=== PATIENT | female | born 1985 | race Caucasian/White ===

== ENCOUNTER 2017-02-09 17:25 | Emergency (ER) | payer OTHER ==
[~2017-02-09] VITALS: Ht 165.1 cm; Wt 114.5 kg
[~2017-02-09 17:25] MED LIST: BUPR1SUB23 SL; MTR800 PO; RANI75TA7 PO; SERT-234 PO
[2017-02-09 17:35] VITALS: TEMP 37; Ht 165.1 cm; Wt 114.5 kg
[2017-02-09] MEDS ORDERED: SULFAMETHOXAZOLE/TRIMETHOPRIM DS 800/160MG TAB PO STA (19:15)
[2017-02-09] MEDS ORDERED: LIDO/EPINEPHRINE/SOD BICARB 20 ML VIAL INFIL ONE (19:15)
[2017-02-09] MEDS ORDERED: MoRPHine SULFATE 4 MG/ML 1 ML CARP\\VIAL IV STA (19:15)
[2017-02-09] MEDS ORDERED: CLINDAMYCIN IV 900 MG in DEXTROSE 5% ADD-VANTAGE 100ML 100 ML IV ONE (19:15)
[2017-02-09 19:52] LABS: BASO % 0.2 %; BASO ABS # 0.02 K/uL (0-0.2); COMPLETE YES; HEMATOCRIT 39.5 % (37-47); IG% 0.2 %; LYMPH % 21.5 %; LYMPH ABS # 1.91 K/uL (1.2-3.4); MEAN CELL VOLUME 84.2 fL (80-100); MEAN CORPUSCULAR HGB CONC 34.4 g/dl (32-36); MEAN PLATELET VOLUME 8.5 fL (7.4-10.4); MONO % 10.1 %; PLATELET COUNT 221 K/uL (130-400); RED BLOOD COUNT 4.69 M/uL (4.2-5.4)
[2017-02-09 20:08] LABS: CALCIUM 8.8 mg/dl (8.5-10.1); CREATININE 0.63 mg/dl (0.60-1.20); POTASSIUM 3.9 mmol/L (3.5-5.1)
[2017-02-09] MEDS ORDERED: RANI1TAB75 PO (20:23)
[2017-02-09] MEDS ORDERED: TRAZ100T29 PO (20:23)
[2017-02-09] MEDS ORDERED: PHEN37.5 PO (20:26)
[2017-02-09] MEDS ORDERED: BUPR8MIS PO (20:27)
[2017-02-09] MEDS ORDERED: CLIN300C2 PO (21:04)
[2017-02-09] MEDS ORDERED: SULF800T23 PO (21:04)
--- NOTE | 2017-02-09 21:05 | EMERGENCY ROOM VISIT NOTE ---
History Report prepared by Jw: Lewis Mcnulty Under the Supervision of: Dr. Kirk Chung D.O. First contact with patient: 19:12 Chief Complaint: WOUND INFECTION Stated Complaint: LARGE BITE ON LF ARM IS INFECTED Nursing Triage Summary: Pt states was working in a flower garden for 4- days. Pt states, "we saw an enormous amount of baby spiders. Now I have this area on my left arm. I tried to pop it yesterday and this dark purple blood came out." Area red, swollen. Pt states, redness is increasing each day. History of Present Illness The patient is a 31 year old female who presents to the Emergency Room with complaints of a worsening abscess on the left forearm beginning four days prior to arrival. She currently rates her discomfort as an 8/10 in severity. The patient associates worsening redness, warmth, and pain at the site of the abscess with today's symptoms. She states she was working in a flower garden several days ago and a few days later, the abscess appeared. The patient recalls seeing a lot of spiders in the garden. She states she popped the abscess with a sewing needle last night and purple-tank blood and a large amount of pus was expressed. The patient denies a history of MRSA. 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 A total of 10 systems reviewed and were otherwise negative. Past Medical & Surgical Surgical Problems: (1) Hx of tonsillectomy Family History No pertinent family history Social History Smoking Status: Current Every Day Smoker Alcohol Use: none Marital Status: Housing Status: lives with family Occupation Status: employed Current/Historical Medications Scheduled Buprenorphine Hcl-Naloxone Hcl (Suboxone 8-2 Mg), 2 TAB PO DAILY Ibuprofen (Ibuprofen), 800 MG PO TID Phentermine Hcl (Phentermine Hcl), 1 TAB PO DAILY Ranitidine HCl (Ranitidine 75), 75 MG PO DAILY Sertraline (Zoloft), 200 MG PO DAILY Trazodone Hcl (Trazodone), 100 MG PO HS Allergies Coded Allergies: Penicillins (Unverified Allergy, Mild, 02/09/17) Aspirin (Unverified Allergy, Unknown, "bp went up", 02/09/17) Blueberry (Unverified Allergy, Unknown, HIVES, 02/09/17) Citric Acid (Unverified Allergy, Unknown, "bp went up", 02/09/17) Sodium Bicarbonate (Unverified Allergy, Unknown, "bp went up", 02/09/17) Physical Exam Vital Signs Date Time Temp Pulse Resp B/P Pulse Ox O2 Delivery O2 Flow Rate FiO2 02/09/17 20:05 89 16 108/76 99 Room Air 02/09/17 17:35 37.0 97 18 152/80 100 Room Air Physical Exam CONSTITUTIONAL/VITAL SIGNS: Reviewed / noted above. GENERAL: Non-toxic in appearance. INTEGUMENTARY: Left arm reveals a quarter size abscess on the left forearm dorsal surface with surrounding erythema. Erythema measures 16x12 cm. Warm, dry , and [place]. HEAD: Normocephalic. EYES: without scleral icterus or trauma. ENT/OROPHARYNX: clear and moist. LYMPHADENOPATHY/NECK: Is supple without lymphadenopathy or meningismus. RESPIRATORY: Lungs clear and equal. CARDIOVASCULAR: Regular rate and rhythm. GI/ABDOMEN: Soft and nontender. No organomegaly or pulsatile mass. No rebound or guarding. Normal bowel sounds. EXTREMITIES: Warm and well perfused. BACK: No CVA tenderness. NEUROLOGICAL: Intact without focal deficits. PSYCHIATRIC: normal affect. MUSCULOSKELETAL: Normally developed with good muscle tone. Medical Decision & Procedures Laboratory Results 02/09/17 19:42 Red Blood Count 4.69, Mean Corpuscular Volume 84.2, Mean Corpuscular Hemoglobin 29.0, Mean Corpuscular Hemoglobin Concent 34.4, Mean Platelet Volume 8.5, Neutrophils (%) (Auto) 67.0, Lymphocytes (%) (Auto) 21.5, Monocytes (%) (Auto) 10.1, Eosinophils (%) (Auto) 1.0, Basophils (%) (Auto) 0.2, Neutrophils # (Auto ) 5.96, Lymphocytes # (Auto) 1.91, Monocytes # (Auto) 0.90, Eosinophils # (Auto ) 0.09, Basophils # (Auto) 0.02 02/09/17 19:42 Test 02/09/17 19:42 White Blood Count 8.90 K/uL (4.8-10.8) Red Blood Count 4.69 M/uL (4.2-5.4) Hemoglobin 13.6 g/dL (12.0-16.0) Hematocrit 39.5 % (37-47) Mean Corpuscular Volume 84.2 fL (80-100) Mean Corpuscular Hemoglobin 29.0 pg (25-34) Mean Corpuscular Hemoglobin Concent 34.4 g/dl (32-36) Platelet Count 221 K/uL (130-400) Mean Platelet Volume 8.5 fL (7.4-10.4) Neutrophils (%) (Auto) 67.0 % Lymphocytes (%) (Auto) 21.5 % Monocytes (%) (Auto) 10.1 % Eosinophils (%) (Auto) 1.0 % Basophils (%) (Auto) 0.2 % Neutrophils # (Auto) 5.96 K/uL (1.4-6.5) Lymphocytes # (Auto) 1.91 K/uL (1.2-3.4) Monocytes # (Auto) 0.90 K/uL (0.11-0.59) Eosinophils # (Auto) 0.09 K/uL (0-0.5) Basophils # (Auto) 0.02 K/uL (0-0.2) RDW Standard Deviation 39.1 fL (36.4-46.3) RDW Coefficient of Variation 12.9 % (11.5-14.5) Immature Granulocyte % (Auto) 0.2 % Immature Granulocyte # (Auto) 0.02 K/uL (0.00-0.02) Anion Gap 7.0 mmol/L (3-11) Est Creatinine Clear Calc Drug Dose 166.4 ml/min Estimated GFR () 140.5 Estimated GFR (Non- 121.2 BUN/Creatinine Ratio 19.0 (10-20) Calcium Level 8.8 mg/dl (8.5-10.1) Medications Administered Medications (Trade) Dose Ordered Sig/Noam Route Start Time Stop Time Status Last Admin Dose Admin Trimethoprim/ Sulfamethoxazole 1 tab 1 tab NOW STAT PO 02/09/17 19:15 02/09/17 19:19 DC 02/09/17 19:30 1 TAB Clindamycin Phosphate/Dextrose (Cleocin Iv/ Dextrose Add-[place] 100ML) 106 ml @ 100 mls/hr ONE ONCE IV 02/09/17 19:15 02/09/17 20:18 DC 02/09/17 20:03 100 MLS/HR Morphine Sulfate (MoRPHine SULFATE INJ) 4 mg NOW STAT IV 02/09/17 19:15 02/09/17 19:19 DC 02/09/17 19:30 4 MG Procedure Incision & Drainage Indication: Abscess. Location: Left forearm Verbal consent was obtained after the risks and benefits were explained, including but not limited to bleeding, scarring, infection, pain, and bone/joint /nerve damage. At this time, the risks of the procedure are less than the risks of NOT performing the procedure. A time out was taken and the correct patient and site identified. The skin was prepped with betadine and a sterile field set. The wound was anesthetized with 1cc of 1% lidocaine without epinephrine. The abscess cavity was entered with a number 11 blade and bloody purulent discharge was expressed. The wound was explored for foreign bodies and none found. Debridement was not performed. Packing placed and a sterile dressing applied. Detailed wound care instructions and signs and symptoms of worsening infection reviewed with the patient. No complications and the patient tolerated the procedure well. ED Course 1912: Previous medical records were reviewed. The patient was evaluated in room B3B. A complete history and physical examination was performed. 1914: Ordered Lidocaine/Epinephrine 20 ml INFIL, Morphine Sulfate 4 mg IV, Clindamycin Phosphate 900 mg/Dextrose 106 ml @ 100 mls/hr IV, Trimethoprim/ Sulfamethoxazole 1 tab PO. 2100: On reevaluation, the patient is doing well. I discussed the results and findings with the patient. She verbalized agreement of the treatment plan. The patient was discharged home. Medical Decision Differential diagnosis: Etiologies such as cellulitis, abscess, MRSA infection, DVT, necrotizing fasciitis, dermatitis, drug eruption, as well as others were entertained.. This is a 31-year-old female who presents to the ED with a chief complaint of a left forearm abscess. She states that she has had 3 or 4 days. Yesterday she stuck a needle in it and drained purulent drainage. The abscess is about the size of a quarter. There is a surrounding erythematous area 12 cm proximal to distal and 16 cm laterally. Lidocaine was used and the scalpel was placed into the center of the wound. A small amount of bloody purulent discharge was obtained. The patient was treated with IV clindamycin and by mouth Bactrim. She will be discharged on clindamycin and Bactrim. He was given IV morphine for pain. Impression Primary Impression: Abscess of forearm, left Scribe Attestation The scribe's documentation has been prepared under my direction and personally reviewed by me in its entirety. I confirm that the note above accurately reflects all work, treatment, procedures, and medical decision making performed by me. Departure Information Dispostion Home / Self-Care Prescriptions Sulfa/Trimethoprim (Bactrim Ds 800MG/160MG) Tab 1 TAB PO BID, #14 TAB Prov: Kirk Chung D.O. 02/09/17 Clindamycin Hcl (CLEOCIN) 300 Mg Cap 300 MG PO QID, #40 CAP Prov: Kirk Chung D.O. 02/09/17 Referrals Richard Chung M.D. (PCP) Patient Instructions My [facility] Additional Instructions Clindamycin and Bactrim as prescribed. Follow-up with your doctor for further care and evaluation in 1-2 days. Return to the emergency department for worsening or new symptoms or any concerns. You have been examined and treated today on an emergency basis only. This is not a substitute for, or an effort to provide, complete comprehensive medical care. It is impossible to recognize and treat all injuries or illnesses in a single emergency department visit. It is therefore important that you follow up closely with your doctor. Call as soon as possible for an appointment.
[2017-02-09 21:18] VITALS: BP 134/78; PULSE 78; O2SAT 97
== END 2017-02-09 21:15 | disposition home or self-care (01) ==
LOC: C.EDB 17:26
DX: N94.10 Unspecified dyspareunia (principal); N93.9 Abnormal uterine and vaginal bleeding, unspecified; N39.0 Urinary tract infection, site not specified; F17.200 Nicotine dependence, unspecified, uncomplicated; Z90.711 Acquired absence of uterus with remaining cervical stump; Z83.3 Family history of diabetes mellitus; Z82.49 Family history of ischemic heart disease and other diseases of the circulatory system; Z84.1 Family history of disorders of kidney and ureter; Z82.0 Family history of epilepsy and other diseases of the nervous system

== ENCOUNTER 2017-02-14 09:28 | Inpatient (IN) | payer OTHER ==
[~2017-02-14] VITALS: Ht 167.6 cm; Wt 114.0 kg
[~2017-02-14 09:28] MED LIST changes: -BUPR1SUB23 SL; +BUPR8MIS PO; +CLIN300C2 PO; +PHEN37.5 PO; +RANI1TAB75 PO; -RANI75TA7 PO; +SULF800T23 PO; +TRAZ100T29 PO
[2017-02-14 09:29] VITALS: Ht 167.6 cm; Wt 114.0 kg
[2017-02-14] MEDS ORDERED: CLINDAMYCIN IV 900 MG in DEXTROSE 5% ADD-VANTAGE 100ML 100 ML IV ONE ×2 (10:00→10:45)
[2017-02-14 10:44] LABS: BASO % 0.1 %; BASO ABS # 0.01 K/uL (0-0.2); COMPLETE YES; EOS % 0.7 %; HEMATOCRIT 40.7 % (37-47); IG% 0.4 %; LYMPH % 14.4 %; LYMPH ABS # 1.44 K/uL (1.2-3.4); MEAN CELL VOLUME 82.1 fL (80-100); MEAN CORPUSCULAR HEMOGLOBIN 27.8 pg (25-34); MEAN CORPUSCULAR HGB CONC 33.9 g/dl (32-36); MEAN PLATELET VOLUME 8.6 fL (7.4-10.4); MONO % 8.6 %; NEUT % 75.8 %; PLATELET COUNT 322 K/uL (130-400); RED BLOOD COUNT 4.96 M/uL (4.2-5.4); WHITE BLOOD COUNT 9.98 K/uL (4.8-10.8)
[2017-02-14 11:10] LABS: BLOOD UREA NITROGEN 16 mg/dl (7-18); BUN/CREATININE RATIO 19.3 (10-20); CALCIUM 9.3 mg/dl (8.5-10.1); CARBON DIOXIDE 26 mmol/L (21-32); CHLORIDE 103 mmol/L (98-107); CREATININE 0.82 mg/dl (0.60-1.20); GLUCOSE 96 mg/dl (70-99); SODIUM 136 mmol/L (136-145)
--- NOTE | 2017-02-14 11:31 | DIAGNOSTIC IMAGING REPORT ---
LEFT UPPER EXTREMITY VENOUS DOPPLER HISTORY: Left arm swelling COMPARISON STUDY: None. FINDINGS: The left internal jugular vein is patent. There is normal flow within the left subclavian vein. There is normal flow and compressibility within the left axillary, basilic, brachial, radial, ulnar, and visualized cephalic veins. IMPRESSION: No DVT within the left upper extremity. Electronically signed by: Maykel Panchal M.D. 02/14/2017 11:28 AM Dictated Date/Time: 02/14/2017 11:28 AM
--- NOTE | 2017-02-14 11:46 | DIAGNOSTIC IMAGING REPORT ---
LEFT UPPER EXTREMITY ULTRASOUND CLINICAL HISTORY: Laceration. Possible infection. COMPARISON STUDY: No previous studies for comparison. FINDINGS: There is a 2.9 x 0.9 x 1.6 cm fluid collection within the deep subcutaneous tissues overlying the musculature of the left forearm. IMPRESSION: 2.9 x 0.9 x 1.6 cm fluid collection within the deep subcutaneous tissues of the left forearm. Given the clinical history, this favors an abscess. Electronically signed by: Amol Lane M.D. 02/14/2017 11:44 AM Dictated Date/Time: 02/14/2017 11:41 AM
--- NOTE | 2017-02-14 11:48 | DIAGNOSTIC IMAGING REPORT ---
LEFT ELBOW 3 VIEWS CLINICAL HISTORY: Spider bite injury. Swelling. FINDINGS: 3 views of the left elbow are obtained. No prior studies are available for comparison at the time of dictation. The skeletal structures are well mineralized. No fracture is seen. The joint spaces are preserved. No joint effusion is identified. Significant soft tissue edema is present around the elbow. No subcutaneous gas or radiodense foreign body is identified. IMPRESSION: 1. No acute bony abnormality is seen in the left elbow. 2. Marked soft tissue edema is present around the elbow joint. Electronically signed by: Chemo Brar M.D. 02/14/2017 11:46 AM Dictated Date/Time: 02/14/2017 11:45 AM
[2017-02-14] MEDS ORDERED: DiphenhydrAMINE HCL 50 MG/ML VIAL IV PRN (15:00)
[2017-02-14] MEDS ORDERED: ONDANSETRON INJ 2 MG/ML 2 ML VIAL IV PRN (15:00)
--- NOTE | 2017-02-14 15:03 | EMERGENCY ROOM VISIT NOTE ---
History Report prepared by Jw: Chelita Tena Under the Supervision of: Dr. Kirk Chung D.O. First contact with patient: 09:40 Chief Complaint: WOUND INFECTION Stated Complaint: LACERATION, POSSIBLE INFECTION Nursing Triage Summary: "I was here last week for a spider bite to my left arm and they lanced it. I was told to come back if it got worse and I think it has." per pt. Pt states she had a fever last evening that responded to motrin and that there is redness, swelling and some drainage from the bite area. History of Present Illness The patient is a 31 year old female who presents to the Emergency Room with complaints of worsening wound infection starting 3 days ago. She was seen in the ED previously and placed on Keflex and Bactrim. She has been taking her medications as prescribed. She describes the wound as purple and painful. She took the bandage off 3 days ago and drained 3 paper towels worth of green pus. Source of History: patient Onset: 3 days ago Position: arm (left) Quality: other (infection) Timing: worsening Note: Pt report arm pain, pus drainage. Review of Systems See HPI for pertinent positives & negatives. A total of 10 systems reviewed and were otherwise negative. Past Medical & Surgical Medical Problems: (1) Abscess of left forearm Surgical Problems: (1) Hx of tonsillectomy Family History Gallbladder disease Hypertension Social History Smoking Status: Current Every Day Smoker Alcohol Use: none Marital Status: Housing Status: lives with family Occupation Status: employed Current/Historical Medications Scheduled Buprenorphine Hcl-Naloxone Hcl (Suboxone 8-2 Mg), 2 TAB PO DAILY Clindamycin Hcl (Cleocin), 300 MG PO QID Ibuprofen (Ibuprofen), 800 MG PO TID Phentermine Hcl (Phentermine Hcl), 1 TAB PO DAILY Ranitidine HCl (Ranitidine 75), 75 MG PO DAILY Sertraline (Zoloft), 200 MG PO DAILY Sulfa/Trimethoprim (Bactrim Ds 800MG/160MG), 1 TAB PO BID Trazodone Hcl (Trazodone), 100 MG PO HS Allergies Coded Allergies: Penicillins (Unverified Allergy, Mild, 02/09/17) Aspirin (Unverified Allergy, Unknown, "bp went up", 02/09/17) Blueberry (Unverified Allergy, Unknown, HIVES, 02/09/17) Citric Acid (Unverified Allergy, Unknown, "bp went up", 02/09/17) Sodium Bicarbonate (Unverified Allergy, Unknown, "bp went up", 02/09/17) Physical Exam Vital Signs Date Time Temp Pulse Resp B/P Pulse Ox O2 Delivery O2 Flow Rate FiO2 02/14/17 13:36 99 17 140/89 96 Room Air 02/14/17 12:09 94 18 145/87 99 Room Air 02/14/17 09:29 36.7 99 16 138/82 100 Room Air Physical Exam CONSTITUTIONAL/VITAL SIGNS: Reviewed / noted above. GENERAL: Non-toxic in appearance. INTEGUMENTARY: Warm, dry, and [place]. HEAD: Normocephalic. EYES: without scleral icterus or trauma. ENT/OROPHARYNX: clear and moist. LYMPHADENOPATHY/NECK: Is supple without lymphadenopathy or meningismus. RESPIRATORY: Lungs clear and equal. CARDIOVASCULAR: Regular rate and rhythm. GI/ABDOMEN: Soft and nontender. No organomegaly or pulsatile mass. No rebound or guarding. Normal bowel sounds. EXTREMITIES: Warm and well perfused. Erythema and induration to the left proximal forearm and lateral elbow area. Improvement of cellulitis distally compared to previous visit. No fluctuance. BACK: No CVA tenderness. NEUROLOGICAL: Intact without focal deficits. PSYCHIATRIC: normal affect. MUSCULOSKELETAL: Normally developed with good muscle tone. Medical Decision & Procedures ER Provider Diagnostic Interpretation: X ray results and stated below per my interpretation and radiology interpretation. Radiology results as stated below per my review and radiologist interpretation: LEFT ELBOW 3 VIEWS CLINICAL HISTORY: Spider bite injury. Swelling. FINDINGS: 3 views of the left elbow are obtained. No prior studies are available for comparison at the time of dictation. The skeletal structures are well mineralized. No fracture is seen. The joint spaces are preserved. No joint effusion is identified. Significant soft tissue edema is present around the elbow. No subcutaneous gas or radiodense foreign body is identified. IMPRESSION: 1. No acute bony abnormality is seen in the left elbow. 2. Marked soft tissue edema is present around the elbow joint. Electronically signed by: Chemo Brar M.D. 02/14/2017 11:46 AM Dictated Date/Time: 02/14/2017 11:45 AM LEFT UPPER EXTREMITY ULTRASOUND CLINICAL HISTORY: Laceration. Possible infection. COMPARISON STUDY: No previous studies for comparison. FINDINGS: There is a 2.9 x 0.9 x 1.6 cm fluid collection within the deep subcutaneous tissues overlying the musculature of the left forearm. IMPRESSION: 2.9 x 0.9 x 1.6 cm fluid collection within the deep subcutaneous tissues of the left forearm. Given the clinical history, this favors an abscess. Electronically signed by: Amol Lane M.D. 02/14/2017 11:44 AM Dictated Date/Time: 02/14/2017 11:41 AM LEFT UPPER EXTREMITY VENOUS DOPPLER HISTORY: Left arm swelling COMPARISON STUDY: None. FINDINGS: The left internal jugular vein is patent. There is normal flow within the left subclavian vein. There is normal flow and compressibility within the left axillary, basilic, brachial, radial, ulnar, and visualized cephalic veins. IMPRESSION: No DVT within the left upper extremity. Electronically signed by: Maykel Panchal M.D. 02/14/2017 11:28 AM Dictated Date/Time: 02/14/2017 11:28 AM Laboratory Results 02/14/17 10:20 Red Blood Count 4.96, Mean Corpuscular Volume 82.1, Mean Corpuscular Hemoglobin 27.8, Mean Corpuscular Hemoglobin Concent 33.9, Mean Platelet Volume 8.6, Neutrophils (%) (Auto) 75.8, Lymphocytes (%) (Auto) 14.4, Monocytes (%) (Auto) 8.6, Eosinophils (%) (Auto) 0.7, Basophils (%) (Auto) 0.1, Neutrophils # (Auto) 7.56, Lymphocytes # (Auto) 1.44, Monocytes # (Auto) 0.86, Eosinophils # (Auto) 0.07, Basophils # (Auto) 0.01 02/14/17 10:20 Test 02/14/17 10:20 White Blood Count 9.98 K/uL (4.8-10.8) Red Blood Count 4.96 M/uL (4.2-5.4) Hemoglobin 13.8 g/dL (12.0-16.0) Hematocrit 40.7 % (37-47) Mean Corpuscular Volume 82.1 fL (80-100) Mean Corpuscular Hemoglobin 27.8 pg (25-34) Mean Corpuscular Hemoglobin Concent 33.9 g/dl (32-36) Platelet Count 322 K/uL (130-400) Mean Platelet Volume 8.6 fL (7.4-10.4) Neutrophils (%) (Auto) 75.8 % Lymphocytes (%) (Auto) 14.4 % Monocytes (%) (Auto) 8.6 % Eosinophils (%) (Auto) 0.7 % Basophils (%) (Auto) 0.1 % Neutrophils # (Auto) 7.56 K/uL (1.4-6.5) Lymphocytes # (Auto) 1.44 K/uL (1.2-3.4) Monocytes # (Auto) 0.86 K/uL (0.11-0.59) Eosinophils # (Auto) 0.07 K/uL (0-0.5) Basophils # (Auto) 0.01 K/uL (0-0.2) RDW Standard Deviation 38.3 fL (36.4-46.3) RDW Coefficient of Variation 12.7 % (11.5-14.5) Immature Granulocyte % (Auto) 0.4 % Immature Granulocyte # (Auto) 0.04 K/uL (0.00-0.02) Anion Gap 7.0 mmol/L (3-11) Est Creatinine Clear Calc Drug Dose 129.6 ml/min Estimated GFR () 112.1 Estimated GFR (Non- 96.7 BUN/Creatinine Ratio 19.3 (10-20) Calcium Level 9.3 mg/dl (8.5-10.1) Laboratory results as stated above per my review. Medications Administered Medications (Trade) Dose Ordered Sig/Noam Route Start Time Stop Time Status Last Admin Dose Admin Clindamycin Phosphate/Dextrose (Cleocin Iv/ Dextrose Add-[place] 100ML) 106 ml @ 100 mls/hr ONE ONCE IV 02/14/17 10:45 02/14/17 11:48 DC 02/14/17 10:45 100 MLS/HR ED Course 0940: Previous medical records were reviewed. The patient was evaluated in room A11. A complete history and physical examination was performed. 1000: Clindamycin Phosphate 900 mg/Dextrose 106 ml @ 100 mls/hr IV. 1218: I discussed the patient's case with [facility] [place]. They told me to contact orthopedics as they do not do the procedure. 1240: I discussed the patient's case with Chinmay Jordan PA-C [facility] [place]. He will evaluate the patient for further management. 1248: On reevaluation, the patient is resting comfort. I discussed the results and findings with her. She verbalized agreement of the treatment plan. The patient will be evaluated for further management and care. 0600: Cefazolin Sodium 3000 mg IV. Medical Decision Differential diagnosis: Etiologies such as cellulitis, abscess, MRSA infection, DVT, necrotizing fasciitis, dermatitis, drug eruption, as well as others were entertained.. This is a 31-year-old female who presents to the ED with a chief complaint of a left arm wound. The patient was seen 5 days ago for the same. The distal portion of the wound appears to have improved some but she has developed increased swelling and induration more proximal now than the original wound. She states that she was able to express some pus that was green out of the wound the other day. She is currently on clindamycin and Bactrim. Her exam is noted above. No obvious palpable abscess but there is tenderness and induration mostly proximal to the original infection and this is in the left proximal forearm and lateral elbow. CBC and PRP are normal. An ultrasound of the abdomen did not show DVT but did show a deep subcutaneous abscess. I spoke with Chinmay Jordan from orthopedics. He saw the patient in the ED. He will be having the patient for abscess drainage. The patient was treated with IV clindamycin. She was seen for further inpatient evaluation by orthopedics. Consults Time Called: 1210 Consulting Physician: L[facility] General surgery Returned Call: 1218 I discussed the patient's case with them. They told me to contact orthopedics as they do not do the procedure. Additional Consults: Time Called: 1230 Consulted Physician: Chinmay Jordan PA-C [facility] Returned Call: [phone] Additional Comments: I discussed the patient's case with him. He will evaluate the patient for further management. Impression Primary Impression: Abscess of left forearm Additional Impression: Cellulitis of forearm, left Scribe Attestation The scribe's documentation has been prepared under my direction and personally reviewed by me in its entirety. I confirm that the note above accurately reflects all work, treatment, procedures, and medical decision making performed by me. Departure Information Dispostion Being Evaluated By Surgeon Carey Mancilla (PCP) Patient Instructions My [facility] Problem Qualifiers
[2017-02-14] MEDS ORDERED: OXYCODONE HCL IR 5 MG TAB (IMMEDIATE RELEASE) PO PRN (15:15)
[2017-02-14] MEDS ORDERED: VANCOMYCIN CONSULT ACTIVE PRN (15:15)
[2017-02-14 16:00] VITALS: BP 97/54; PULSE 99; TEMP 37; O2SAT 100
--- NOTE | 2017-02-14 16:06 | Medical Consult ---
Consultation Date of Consultation: Feb 14, 2017. Attending Physician: Reason for Consultation: forearm abscess History of Present Illness Patient is a 31 yo female who presented to the ED for evaluation of worsening pain, swelling, and erythema of the left forearm. The patient was initially evaluated on 02/09/17 for similar symptoms after she developed a "pimple" like area that grew in size over about 4 days prior to initial evaluation. The patient states that she first noticed the lesion the next morning after gardening. She was cleaning up old sticks and mulch from last year from her garden when she encountered a large number of small brown spiders. She does not recall getting bitten by any of the spiders but did continue to garden after finding them. The very next morning she noted a small pimple on her forearm that continued to grow in size and began to be very painful over the next few days. During her previous ED visit, the area was noted to be fluctuant and was lanced. A culture was taken and grew alpha strep. She was discharged home on PO Bactrim and Clindamycin. She overall did improve at home but then noted sudden worsening prior to current admission. She had increasing pain, erythema, and copious green purulent drainage from the area. She denies contact with roses. Since admission, the patient's WBC count was 9.98. Her creatinine was 0.82. I did discuss this patient with Chinmay Jordan PA-C from orthopedics as well. The patient had an U/S of the left forearm which showed a 2.9 x 0.9 x 1.6 cm fluid collection in the deep subcutaneous tissues favoring abscess. Elbow X-Ray showed marked soft tissue edema around the elbow joint but no bony abnormality. Past Medical/Surgical History Medical Problems: (1) Abscess of forearm, left Status: Acute (2) Cellulitis of forearm, left Status: Acute Medical Problems: (1) Abscess of left forearm Surgical Problems: (1) Hx of tonsillectomy Family History Gallbladder disease Hypertension Noncontributory Social History Smoking Status: Current Every Day Smoker Marital Status: Housing Status: lives with family Occupation Status: employed Allergies Coded Allergies: Penicillins (Unverified Allergy, Mild, 02/09/17) Aspirin (Unverified Allergy, Unknown, "bp went up", 02/09/17) Blueberry (Unverified Allergy, Unknown, HIVES, 02/09/17) Citric Acid (Unverified Allergy, Unknown, "bp went up", 02/09/17) Sodium Bicarbonate (Unverified Allergy, Unknown, "bp went up", 02/09/17) Home Medications Reported Home Medications Medications Dose Route/Sig Max Daily Dose Days Date Category Bactrim Ds 800MG/160MG (Trimethoprim/Sulfamethoxazole) Tab 1 Tab PO BID 02/09/17 Rx Cleocin (Clindamycin Hcl) 300 Mg Cap 300 Mg PO QID 02/09/17 Rx Suboxone 8-2 Mg (Buprenorphine Hcl-Naloxone Hcl) 1 Mis Mis 2 Tab PO DAILY 02/09/17 Reported Phentermine Hcl 37.5 Mg Tab 1 Tab PO DAILY 02/09/17 Reported Trazodone (Trazodone HCl) 100 Mg Tab 100 Mg PO HS 02/09/17 Reported Ranitidine 75 (Ranitidine HCl) 75 Mg Tab 75 Mg PO DAILY 02/09/17 Reported Zoloft (Sertraline HCl) 100 Mg Tab 200 Mg PO DAILY 10/16/16 Reported Ibuprofen 800 Mg Tab 800 Mg PO TID 01/28/15 Reported Current Inpatient Medications Current Inpatient Medications Medications (Trade) Dose Ordered Sig/Noam Route Start Time Stop Time Status Last Admin Dose Admin Diphenhydramine HCl (Benadryl Inj) 25 mg Q8 PRN IV 02/14/17 15:00 03/16/17 14:59 Ondansetron HCl 4 mg 4 mg Q6H PRN IV 02/14/17 15:00 03/16/17 14:59 Vancomycin HCl/ Sodium Chloride (Vancomycin Inj/ Nss 250ml) 270 ml @ 125 mls/hr Q12 IV 02/14/17 21:00 02/24/17 20:59 UNV Vancomycin HCl (Consult) 1 ea UD PRN N/A 02/14/17 15:15 03/16/17 15:14 Diphenhydramine HCl (Benadryl Cap) 25 mg Q8H PRN PO 02/14/17 15:15 03/16/17 15:14 Oxycodone HCl (Roxicodone Immediate Rel Tab) @ Q4HWA PRN PO 02/14/17 15:15 02/28/17 15:14 UNV Sertraline HCl (Zoloft Tab) 200 mg DAILY PO 02/15/17 09:00 03/17/17 08:59 UNV Trazodone HCl (Desyrel Tab) 100 mg HS PO 02/14/17 21:00 03/16/17 20:59 UNV Non-Formulary Medication (Ranitidine HCl (Ranitidine 75)) 75 mg DAILY PO 02/15/17 09:00 03/17/17 08:59 UNV Review of Systems Constitutional: + fever, + sweats Eyes: No worsening of vision ENT: No hearing loss Respiratory: No cough, No shortness of breath Cardiovascular: No chest pain Abdomen: No diarrhea, No nausea, No pain Musculoskeletal: + swelling (left forearm/elbow) Genitourinary - Female: No dysuria, No urinary frequency Integumentary: + color change (erythema of left forearm, small open lesion on dorsal left forearm), No itch, No rash Physical Exam Date Time Temp Pulse Resp B/P Pulse Ox O2 Delivery O2 Flow Rate FiO2 02/14/17 15:14 99 18 132/77 99 Room Air 02/14/17 13:36 99 17 140/89 96 Room Air 02/14/17 12:09 94 18 145/87 99 Room Air 02/14/17 09:29 36.7 99 16 138/82 100 Room Air General Appearance: no apparent distress, + obese Head: normocephalic, atraumatic Eyes: normal inspection, sclerae normal ENT: hearing grossly normal Neck: supple, trachea midline Respiratory/Chest: no respiratory distress, no accessory muscle use Cardiovascular: + tachycardia Extremities/Musculoskelatal: normal range of motion, + swelling (left forearm with moderate edema and tenderness noted. ) Neurologic/Psych: alert, normal mood/affect, oriented x 3 Skin: warm/dry, no rash, + pertinent finding (Moderately severe erythema of the left mid-forearm to the mid-proximal left upper extremity. Associated warmth. Small lesion on dorsal forearm which is not currently draining) Laboratory Results LEFT UPPER EXTREMITY ULTRASOUND CLINICAL HISTORY: Laceration. Possible infection. COMPARISON STUDY: No previous studies for comparison. FINDINGS: There is a 2.9 x 0.9 x 1.6 cm fluid collection within the deep subcutaneous tissues overlying the musculature of the left forearm. IMPRESSION: 2.9 x 0.9 x 1.6 cm fluid collection within the deep subcutaneous tissues of the left forearm. Given the clinical history, this favors an abscess. LEFT ELBOW 3 VIEWS CLINICAL HISTORY: Spider bite injury. Swelling. FINDINGS: 3 views of the left elbow are obtained. No prior studies are available for comparison at the time of dictation. The skeletal structures are well mineralized. No fracture is seen. The joint spaces are preserved. No joint effusion is identified. Significant soft tissue edema is present around the elbow. No subcutaneous gas or radiodense foreign body is identified. IMPRESSION: 1. No acute bony abnormality is seen in the left elbow. 2. Marked soft tissue edema is present around the elbow joint. Last 24 Hours Test 02/14/17 10:20 White Blood Count 9.98 K/uL Red Blood Count 4.96 M/uL Hemoglobin 13.8 g/dL Hematocrit 40.7 % Mean Corpuscular Volume 82.1 fL Mean Corpuscular Hemoglobin 27.8 pg Mean Corpuscular Hemoglobin Concent 33.9 g/dl Platelet Count 322 K/uL Mean Platelet Volume 8.6 fL Neutrophils (%) (Auto) 75.8 % Lymphocytes (%) (Auto) 14.4 % Monocytes (%) (Auto) 8.6 % Eosinophils (%) (Auto) 0.7 % Basophils (%) (Auto) 0.1 % Neutrophils # (Auto) 7.56 K/uL Lymphocytes # (Auto) 1.44 K/uL Monocytes # (Auto) 0.86 K/uL Eosinophils # (Auto) 0.07 K/uL Basophils # (Auto) 0.01 K/uL RDW Standard Deviation 38.3 fL RDW Coefficient of Variation 12.7 % Immature Granulocyte % (Auto) 0.4 % Immature Granulocyte # (Auto) 0.04 K/uL Sodium Level 136 mmol/L Potassium Level mmol/L Chloride Level 103 mmol/L Carbon Dioxide Level 26 mmol/L Anion Gap 7.0 mmol/L Blood Urea Nitrogen 16 mg/dl Creatinine 0.82 mg/dl Est Creatinine Clear Calc Drug Dose 129.6 ml/min Estimated GFR () 112.1 Estimated GFR (Non- 96.7 BUN/Creatinine Ratio 19.3 Random Glucose 96 mg/dl Calcium Level 9.3 mg/dl Assessment & Plan Patient with worsening left forearm abscess and surrounding cellulitis. She is currently on IV Vancomycin which is appropriate pending I & D and repeat culture results. Patient previously had alpha strep in this area which is likely the primary pathogen, but agree with broader spectrum pending OR cultures. We will continue to follow this patient and adjust abx as able. PROVIDER ADDENDUM: Patient examined and reviewed with Ms. Segovia. Agree with above assessment.
--- NOTE | 2017-02-14 16:13 | Pharmacy Progress Note ---
Pharmacy Antibiotic Consult Date of Service: Feb 14, 2017. Pharmacy Dosing Scope Pharmacy is consulted to initiate Vancomycin IV dosing therapy, order appropriate labs and adjust drug dose/frequency. Subjective The patient is a 31 year old female admitted on 02/14/17. Objective Height (Feet): 5 Height (Inches): 6.00 Weight (Kilograms): 113.900 Lab Results (24hrs): Laboratory Tests Test 02/14/17 10:20 BUN/Creatinine Ratio 19.3 Blood Urea Nitrogen 16 mg/dl Creatinine 0.82 mg/dl White Blood Count 9.98 K/uL Red Blood Count 4.96 M/uL Hemoglobin 13.8 g/dL Hematocrit 40.7 % Mean Corpuscular Volume 82.1 fL Mean Corpuscular Hemoglobin 27.8 pg Mean Corpuscular Hemoglobin Concent 33.9 g/dl Platelet Count 322 K/uL Mean Platelet Volume 8.6 fL Neutrophils (%) (Auto) 75.8 % Lymphocytes (%) (Auto) 14.4 % Monocytes (%) (Auto) 8.6 % Eosinophils (%) (Auto) 0.7 % Basophils (%) (Auto) 0.1 % Neutrophils # (Auto) 7.56 K/uL Lymphocytes # (Auto) 1.44 K/uL Monocytes # (Auto) 0.86 K/uL Eosinophils # (Auto) 0.07 K/uL Basophils # (Auto) 0.01 K/uL Assessment & Plan 31 yo F admitted with wound infection (spider bite/laceration), initiated on Vancomycin IV. Patient received both oral Clindamycin + Bactrim when D/C'd from ER a few days ago. Wound has not improved and is now draining green puss per ED note. No cultures pending at this time. Vancomycin * Loading dose: 2750 mg IV X 1 dose * Continue 1750 mg IV every 10 hours. * Of note, patient's BMI is >35 kg/m2 which puts her at risk for drug accumulation. But given her age and renal function, I still need to remain aggressive. Regimen may need adjusted in the future. * Goal trough level estimate: ~15 mcg/mL. (skin/soft tissue infection) * A trough level has been ordered for: 02/16/17 @0830 prior to 0900 dose. Pharmacy will continue to follow and will adjust dose/frequency as necessary. Thank you
[2017-02-14] MEDS ORDERED: VANCOMYCIN INJ 2,750 MG in SODIUM CHLORIDE 0.9% 500ML 500 ML IV SCH (16:30)
--- NOTE | 2017-02-14 17:34 | Anesthesiology Progress Note ---
Pre-OP Anesthesia Assessment Date of Note Feb 14, 2017. Review patient information reviewed, chart reviewed, labs reviewed, acceptable for surgery Notes I saw this pt as part of pre-op evaluation for I&D L forearm abscess by Dr. Corrales tomorrow. She developed a L forearm abscess after gardening, ? spider bite, and had this drained in the ED on 02/09 and was placed on antibiotics. Cultures at the time grew alpha Strep. She initially improved but has since worsened. She's now on vancomycin. PMH includes morbid obesity, GERD, anxiety, and opioid dependence on Suboxone since a lumbar microdiscectomy in (grade 2 view w/ Mac 3 at the time). She also smokes about 1/2 PPD. On exam, she sitting in bed in NAD, awake and alert, non-toxic appearing. Afebrile w/ stable vitals on room air. Airway exam reassuring though she does have tongue and lip piercings. Labs normal. I consented her for GA. She'll be NPO after midnight except sips of water w/ sertraline and ranitidine. She should not take her Suboxone tomorrow morning as this will make her post-op pain more difficult to control. I told her she would have to remove her piercings before surgery and she understood.
[2017-02-14] MEDS ORDERED: BUPRENORPHINE/NALOXONE 8/2 MG TAB SL SCH (18:00)
[2017-02-14] MEDS: KETOROLAC TROMETHAMINE 30 MG/ML VIAL IV PRN (18:22)
--- NOTE | 2017-02-14 18:23 | HISTORY & PHYSICAL EXAMINATION ---
DATE OF ADMISSION: 02/14/2017 REASON FOR ADMISSION: Abscess left forearm. HISTORY OF PRESENT ILLNESS: The patient is a 31-year-old white female who states that on 09 of February she came into the Emergency Room here because of infection in her left forearm from what was a questionable spider bite. This had occurred 1 or 2 days prior to her coming to the Emergency Room on that day. She states that prior to the first ER visit that she had popped head of the abscess with a sewing needle and some blood and large amount of pus was expressed, which she stated to me was green at that time she had pushed on it. At that time Dr. Chung ended up lancing it and cleaning what he could cleanout and sent for culture which at that time showed alpha strep. She was then sent home on Bactrim and clindamycin and was told to follow up if her symptoms worsened. She returns today with worsening symptoms of the forearm and stating that the area is swelling up again. PAST MEDICAL HISTORY: GERD, depression, anxiety, chronic low back pain, history of premature atrial complexes as a child which has resolved; history of ovarian cysts. Denies hypertension, diabetes mellitus, tuberculosis, hepatitis, COPD, rheumatic fever. PAST SURGICAL HISTORY: Tonsillectomy as a child and she has had a discectomy performed in the past around 2013. FAMILY HISTORY: Cholelithiasis and hypertension. SOCIAL HISTORY: The patient is a smoker who smokes half pack cigarettes a day for the past 4 years and drinks alcohol rarely. 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 MEDICATIONS: At home, Suboxone 8/2 two tabs p.o. daily, clindamycin 300 mg p.o. q.i.d., ibuprofen 800 mg p.o. t.i.d., phentermine 37.5 mg p.o. daily, Zantac 75 mg p.o. daily, Zoloft 200 mg p.o. daily, Bactrim-DS 1 tab p.o. b.i.d., trazodone 100 mg p.o. at bedtime. ALLERGIES: PENICILLINS, SODIUM BICARBONATE, CITRIC ACID, BLUE BERRIES, ASPIRIN. REVIEW OF SYSTEMS: The patient denies any chills or shaking rigors, but feels that she had a fever, but had a fever yesterday which dissipated with Motrin, but then returned. She has no unexplained weight loss or weight gain. No flu or cold like symptoms with her fever. No shortness of breath at rest or on exertion. No increased cough or sputum production. No chest pain, chest pressure, irregular heartbeat. Denies abdominal pain. No unusual nausea, vomiting or diarrhea. No hematemesis, melena, or hematochezia. No hematuria, pyuria, dysuria. No history of dizzy sensations, spinning sensations. No history of lightheadedness and no history of seizure disorder, CVA, or TIA. PHYSICAL EXAMINATION: VITAL SIGNS: Temperature on arrival was 36.7. Her latest vital signs were 99 pulse, respirations 18, BP 132/77, pulse ox 99 on room air. GENERAL: The patient is an obese white female who is alert and oriented x3 and in no acute distress, pleasant and cooperative. SKIN: Warm and dry. Turgor is good. HEENT: Head is normocephalic, atraumatic. There is no scleral icterus or injection. Nasal airway is patent. Oral mucosa is pink and moist. NECK: Supple. HEART: Regular rate and rhythm without murmurs or gallops. LUNGS: Clear to auscultation. ABDOMEN: Soft, obese and nontender. Bowel sounds are present x4. GENITALIA AND RECTAL: Not performed at this time. EXTREMITIES: On examination of the patient's left lower extremity, she has a noted area over the volar aspect of her left forearm that is just distal to the elbow that is firm and swollen and tender on palpation. There is an area where she has a scab over the previous place where her abscess was incised 5 days ago. There is no active drainage at this time. The area is erythematous and tender as noted. Previous circles were drawn around erythema from her prior visit actually looked better; however, her erythema now that travels down the sides of both of the arms and is traveling up the elbow and is approximately third the way up the arm at this time. A lot of this area is indurated and tender on palpation and erythematous. She is able to go through range of motion with the left elbow, but is mild to moderately painful with range of motion, but I do not feel that the infection is in the joint, but mostly due to skin tenderness from her cellulitis. She has no pain running down the arm at this point in time and has good range of motion of her wrist, fingers and has good sensation and motor function there. She denies pain in the left shoulder. Right upper extremity is benign and has good range of motion as are the lower extremities that are benign and within normal limits with range of motion. NEUROLOGICAL: The patient is alert and oriented x3 and no gross motor or sensory deficits are noted at this time. IMAGING: Ultrasound study was done of the forearm today and found to have a 2.9 x 0.9 x 1.6 fluid collection within the deep subcutaneous tissues overlying the musculature of the left forearm that favors abscess with recent history. Elbow film was reviewed and no bony abnormalities are seen and no fractures. DIAGNOSIS: Cellulitis left upper extremity with likely abscess in the proximal forearm on the volar aspect. PLAN: At this point in time, the patient will be admitted for IV antibiotics. We have started on vancomycin and infectious disease has been consulted and will adjust antibiotics and dosages accordingly. We will make her n.p.o. after midnight and plan on doing an irrigation and debridement of the left forearm abscess tomorrow afternoon after she has been unable to receive little bit more in the way of IV antibiotics. I have discussed this in detail with the patient and she is in agreement with treatment and we will now admit her for further care.
[2017-02-14] MEDS: BUPRENORPHINE/NALOXONE 8/2 MG TAB SL SCH (18:40)
[2017-02-14] MEDS ORDERED: NURSING VERBAL MED ORDER ONE ×2 (18:45→19:30)
[2017-02-14 19:33] VITALS: BP 97/54; PULSE 99; TEMP 37; O2SAT 100
[2017-02-14 19:47] LABS: URINE APPEARANCE CLEAR (CLEAR); URINE BILIRUBIN NEG (NEG); URINE COLOR YELLOW; URINE EPITHELIAL CELL AUTO 20-30 /lpf (0-5); URINE NITRITE NEG (NEG); URINE SPECIFIC GRAVITY 1.022 (1.000-1.030); UROBILINOGEN NEG (NEG)
[2017-02-14 19:48] LABS: MANUAL MICROSCOPIC REQUIRED? NO; REVIEW REQ? NO
[2017-02-14] MEDS: NICOTINE 21 MG/24 HR TDSY EXT SCH (20:51)
[2017-02-14] MEDS: TRAZODONE HCL 100 MG TAB PO SCH (20:51)
[2017-02-14 22:55] VITALS: BP 92/56; PULSE 75; TEMP 37; O2SAT 93
[2017-02-15] VITALS (9 sets, daily range): BP systolic 95–132; BP diastolic 63–79; PULSE 62–88; TEMP 36.7–37.3; O2SAT 93–100
[2017-02-15] MEDS: KETOROLAC TROMETHAMINE 30 MG/ML VIAL IV PRN ×3 (00:26→16:23)
[2017-02-15] MEDS: VANCOMYCIN INJ 1,750 MG in SODIUM CHLORIDE 0.9% 500ML 500 ML IV SCH ×2 (03:25→14:55)
[2017-02-15] MEDS ORDERED: CEFAZOLIN IV 3,000 MG/65 ML D5W IV ONE (06:00)
[2017-02-15 09:07] LABS: CREATININE 0.73 mg/dl (0.60-1.20)
[2017-02-15] MEDS: SERTRALINE HCL 100 MG TAB PO SCH (09:21)
[2017-02-15] MEDS: RANITIDINE HCL 150 MG TAB PO SCH (09:22)
--- NOTE | 2017-02-15 11:51 | Infectious Disease Progress Nt ---
Progress Note Date of Service Feb 15, 2017. Subjective Pt evaluation today including: conversation w/ patient, physical exam, chart review, lab review, review of studies, review of inpatient medication list Patient's repeat creatinine this morning is stable at 0.73. She continues to have on and off severe pain in the left elbow and proximal left arm. She feels that the erythema has improved. She denies recurrent fever, sweats, or chills. She is otherwise tolerating her IV abx well. She is anticipating surgical I & D this afternoon of the left forearm. All Other Systems: Reviewed and Negative Medications Current Inpatient Medications Medications (Trade) Dose Ordered Sig/Noam Route Start Time Stop Time Status Last Admin Dose Admin Diphenhydramine HCl (Benadryl Inj) 25 mg Q8 PRN IV 02/14/17 15:00 03/16/17 14:59 Ondansetron HCl (Zofran Inj) 4 mg Q6H PRN IV 02/14/17 15:00 03/16/17 14:59 Vancomycin HCl (Consult) 1 ea UD PRN N/A 02/14/17 15:15 03/16/17 15:14 Diphenhydramine HCl (Benadryl Cap) 25 mg Q8H PRN PO 02/14/17 15:15 03/16/17 15:14 Oxycodone HCl (Roxicodone Immediate Rel Tab) @ Q4HWA PRN PO 02/14/17 15:15 02/28/17 15:14 02/15/17 09:30 10 MG Sertraline HCl (Zoloft Tab) 200 mg DAILY PO 02/15/17 09:00 03/17/17 08:59 02/15/17 09:21 200 MG Trazodone HCl (Desyrel Tab) 100 mg HS PO 02/14/17 21:00 03/16/17 20:59 02/14/17 20:51 100 MG Ranitidine HCl 75 mg 75 mg DAILY PO 02/15/17 09:00 03/17/17 08:59 02/15/17 09:22 75 MG Vancomycin HCl/ Sodium Chloride (Vancomycin Inj/ Nss 500ml) 535 ml @ 200 mls/hr Q10H IV 02/15/17 03:00 02/23/17 23:59 02/15/17 03:25 200 MLS/HR Buprenorphine/ Naloxone (Suboxone Tab) 2 ea QAM SL 02/14/17 18:00 03/16/17 17:59 Future hold Ketorolac Tromethamine (Toradol Inj) 30 mg Q6H PRN IV 02/14/17 16:45 02/19/17 16:44 02/15/17 06:29 30 MG Nicotine (Nicoderm Cq 21MG Patch) 1 patch HS EXT 02/14/17 21:00 03/16/17 20:59 02/14/17 20:51 1 PATCH Objective Vital Signs Date Time Temp Pulse Resp B/P Pulse Ox O2 Delivery O2 Flow Rate FiO2 02/15/17 08:00 Room Air 02/15/17 07:24 36.9 83 16 95/63 100 Room Air 02/15/17 00:15 Room Air 02/14/17 22:55 37.0 75 16 92/56 93 Room Air 02/14/17 19:33 37.0 99 18 97/54 100 Room Air 02/14/17 16:00 37.0 99 18 97/54 100 Room Air 02/14/17 15:14 99 18 132/77 99 Room Air 02/14/17 13:36 99 17 140/89 96 Room Air 02/14/17 12:09 94 18 145/87 99 Room Air Physical Exam General Appearance: no apparent distress, + obese Eyes: normal inspection, sclerae normal ENT: hearing grossly normal Neck: supple Respiratory/Chest: no respiratory distress, no accessory muscle use Cardiovascular: + pertinent finding (regular rate) Extremities: + swelling (left elbow, proximal forearm, and left upper arm.), + pertinent finding (tenderness to palpation of the left elbow and upper left extremity. 5-6 cm indurated area of the proximal left forearm) Neurologic/Psychiatric: alert, normal mood/affect Skin: warm/dry, + pertinent finding (moderate erythema of the left elbow, forearm, and surrounding area- color already slightly improved from yesterday's exam. No drainage. ) Laboratory Results Last 24 Hours Test 02/14/17 19:26 02/15/17 06:18 Urine Color YELLOW Urine Appearance CLEAR Urine pH 6.0 Urine Specific [place] 1.022 Urine Protein NEG Urine Glucose (UA) NEG Urine Ketones NEG Urine Occult Blood 2+ Urine Nitrite NEG Urine Bilirubin NEG Urine Urobilinogen NEG Urine Leukocyte Esterase TRACE Urine WBC (Auto) 1-5 /hpf Urine RBC (Auto) >30 /hpf Urine Hyaline Casts (Auto) 1-5 /lpf Urine Epithelial Cells (Auto) 20-30 /lpf Urine Bacteria (Auto) NEG Creatinine 0.73 mg/dl Est Creatinine Clear Calc Drug Dose 145.7 ml/min Estimated GFR () 129.0 Estimated GFR (Non- 111.3 Assessment and Plan Patient with left forearm abscess and surrounding cellulitis which appears slightly improved. She is currently on IV Vancomycin which is appropriate pending I & D and repeat culture results. Patient previously had alpha strep in this area which is likely the primary pathogen, but continue broader spectrum pending OR cultures. We will continue to follow this patient and adjust abx as able. PROVIDER ADDENDUM: Patient reviewed with Ms. Segovia. Agree with above assessment. PROVIDER ADDENDUM: Patient reviewed with Ms. Segovia. Agree with above assessment.
--- NOTE | 2017-02-15 11:59 | History & Physical Bridge Note ---
H&P Re-Evaluation Bridge Note: I have examined the patient, reviewed the History & Physical and in the interval since the performance of the History & Physical I have noted the following changes of clinical significance: No changes noted
[2017-02-15] MEDS ORDERED: MIDAZOLAM HCL 1 MG/ML 2ML VIAL ONE ×2 (12:06→13:48)
[2017-02-15] MEDS ORDERED: FENTANYL CITRATE INJ 50 MCG/1 ML 2 ML VIAL ONE ×2 (12:06→13:47)
[2017-02-15] MEDS ORDERED: BUPIVACAINE 0.5 % 5 MG/1 ML MPF 30ML VIAL ONE (12:19)
[2017-02-15] MEDS ORDERED: BACITRACIN 50000 UNIT VIAL ONE (12:19)
[2017-02-15] MEDS ORDERED: SCOPOLAMINE 1.5 MG TDSY TD ONE (12:24)
[2017-02-15] MEDS ORDERED: HYDROmorphone INJ 2 MG/ML SYR/VIAL IV PRN (13:30)
[2017-02-15] MEDS ORDERED: ONDANSETRON INJ 2 MG/ML 2 ML VIAL IV PRN (13:30)
[2017-02-15] MEDS ORDERED: ATROPINE SULFATE 0.1 MG/ML 5ML SYR IV PRN (13:30)
[2017-02-15] MEDS ORDERED: LABETALOL HCL IV 5 MG/ML 20ML IV PRN (13:30)
--- NOTE | 2017-02-15 13:41 | [facility] Post Operative Brief Note ---
Immediate Operative Summary Operative Date Feb 15, 2017. Pre-Operative Diagnosis Left forearm cellulitis with abscess Post-Operative Diagnosis Left forearm cellulitis, with abscess Procedure(s) Performed Incision and debridement left forearm abscess Surgeon Dr. Reyez Crabbing Machine Operator Surgeon(s) none Estimated Blood Loss 20cc Findings gross purulence Specimens Micro 1. Left forearm abscess, gram stain, routine culture and sensitivity and anaerobic Disposition Recovery Room / PACU
[2017-02-15] MEDS ORDERED: DiphenhydrAMINE HCL 50 MG/ML VIAL IV PRN (13:45)
[2017-02-15] MEDS ORDERED: MoRPHine SULFATE 2 MG/ML CARP IV PRN (13:45)
[2017-02-15] MEDS ORDERED: HYDROCODONE/ACETAMOPHEN 5/325MG TAB PO PRN (13:45)
[2017-02-15] MEDS ORDERED: HYDROmorphone INJ 1 MG/ML SYR ONE (13:58)
[2017-02-15] MEDS ORDERED: DEXAMETHASONE SOD INJ 4 MG/ML VIAL ONE (14:04)
[2017-02-15] MEDS ORDERED: ROCURONIUM BROMIDE 10 MG/ML 5 ML VIAL ONE (14:04)
[2017-02-15] MEDS ORDERED: GLYCOPYRROLATE INJ 0.2 MG/ML VIAL ONE (14:04)
[2017-02-15] MEDS ORDERED: LIDOCAINE HCL 2% 2 ML VIAL (20MG/ML) ONE (14:04)
[2017-02-15] MEDS ORDERED: PROPOFOL IV EMULSION 10 MG/ML 20 ML VIAL IV ONE (14:04)
[2017-02-15] MEDS ORDERED: ONDANSETRON INJ 2 MG/ML 2 ML VIAL ONE (14:04)
[2017-02-15] MEDS ORDERED: NEOSTIGMINE METHYLSULFATE 5 MG/5 ML SYR ONE (14:04)
--- NOTE | 2017-02-15 14:06 | Anesthesiology Progress Note ---
Anesthesia Post Op Note Date & Time Feb 15, 2017 at 14:06 Vital Signs Pain Intensity: 4 Vital Signs Past 12 Hours Date Time Temp Pulse Resp B/P Pulse Ox O2 Delivery O2 Flow Rate FiO2 02/15/17 13:55 84 16 126/91 99 Mask 10 02/15/17 13:46 37.1 88 16 136/57 100 Mask 10 02/15/17 08:00 Room Air 02/15/17 07:24 36.9 83 16 95/63 100 Room Air Notes Mental Status: alert / awake / arousable, participated in evaluation Pt Amnestic to Procedure: Yes Nausea / Vomiting: adequately controlled Pain: adequately controlled Airway Patency, RR, SpO2: stable & adequate BP & HR: stable & adequate Hydration State: stable & adequate Anesthetic Complications: no major complications apparent
[2017-02-15] MEDS ORDERED: MoRPHine SULFATE 10 MG/ML CARP/VIAL IV PRN (14:15)
[2017-02-15] MEDS ORDERED: MoRPHine SULFATE 4 MG/ML 1 ML CARP\\VIAL IV PRN (14:15)
--- NOTE | 2017-02-15 14:29 | OPERATIVE REPORT ---
DATE OF OPERATION: 02/15/2017 PREOPERATIVE DIAGNOSIS: Abscess, left forearm superficial to fascia. POSTOPERATIVE DIAGNOSIS: Abscess, left forearm superficial to fascia. PROCEDURE: Incision and drainage abscess left forearm. SURGEON: Dr. Reyez. ANESTHESIA: General. COMPLICATIONS: None. PROCEDURE: Following the induction of adequate general anesthesia, the patient's arm was elevated and the tourniquet was inflated to 250 mmHg. Longitudinal incision was made from the proposed spider bite proximally opening the indurated area. Gross purulence was identified. Initial irrigation was carried out after cultures were taken and digital palpation explored the extent of the abscess. It tracked proximally and ulnarly, remained superficial to fascia. 3000 mL of pulsatile irrigation was used to thoroughly clean the wound and new gloves were applied and half inch iodoform gauze packing was inserted. Loose closure with 4-0 nylon simple sutures was carried out. A sterile dressing of Adaptic, 4x4s, Kerlix and 4 inch Burak was applied. The patient tolerated the procedure well. I attest to the content of the Intraoperative Record and any orders documented therein. Any exceptio ns are noted below.
[2017-02-15] MEDS: D5W AND 1/2NSS + 20MEQ KCL 1,000 ML IV SCH (17:40)
[2017-02-15] MEDS ORDERED: HYDROmorphone INJ 0.5 MG/0.5 ML SYR IV PRN (18:45)
[2017-02-15] MEDS ORDERED: NURSING VERBAL MED ORDER ONE (19:30)
[2017-02-15] MEDS: NICOTINE 21 MG/24 HR TDSY EXT SCH (20:05)
[2017-02-15] MEDS: TRAZODONE HCL 100 MG TAB PO SCH (20:08)
--- NOTE | 2017-02-15 21:09 | ORTHOPEDIC PROGRESS NOTE ---
DATE: 02/15/2017 TIME: 1850 I arrived on the floor here on [address] to go over the patient's chart to see where she has a pain contract with a place in [place] that supplies her with Suboxone. The plan is to call them and discuss her current surgery and the medications she might be receiving as well as having them continue her pain contract afterward. When I arrived, the patient and a young gentleman were actually in the elevator and were causing kind of a ruckus with the nursing staff and she was trying to leave the building because she was in pain. She was initially going to sign out AMA and said she wants to go somewhere else to get pain medications, etc. After discussing this with her briefly in the elevator, the patient agreed to go back to her room and at that point in time I discussed the case briefly with Dr. Reyez who states that it is reasonable with surgery that she could have an increased dose of pain medication. Currently, the patient is back in her room now, and upon seeing her, dressings are intact and she has an ice pack on it and she is just discussing the pain she is having. She states that she did not want another IV site; however, it was discussed with her that she does need an IV site for her IV antibiotics. If she does not have an IV site, then oral antibiotics were not going to help this go away and that she would be back at the place she was prior to coming in with her infection more than likely. She agreed to another IV site and the IV antibiotics. Plans are at this time to give her OxyIR 1-2 tablets every [address] hours [address] awake and [address] Reyez also would like her to have hydromorphone and it was ordered 0.25 mg every 3 hours IV p.r.n. for pain control. She also has IV Toradol as well at this point in time. Pain management will be consulted. Plans are to call her pain management contract provider tomorrow to address the patient's pain management contract and to discuss how things are going on right now at the hospital. Hopefully, she will remain in the hospital to receive her IV antibiotics; however, she has already intentionally signed the AMA form and I am unsure whether she will stay the night or not. BJ
[2017-02-16] MEDS: OXYCODONE HCL IR 5 MG TAB (IMMEDIATE RELEASE) PO PRN ×4 (00:28→19:27)
[2017-02-16] MEDS: D5W AND 1/2NSS + 20MEQ KCL 1,000 ML IV SCH ×3 (00:29→20:06)
[2017-02-16] MEDS: VANCOMYCIN INJ 1,750 MG in SODIUM CHLORIDE 0.9% 500ML 500 ML IV SCH ×3 (00:30→20:06)
[2017-02-16 03:45] VITALS: BP 100/66; PULSE 60; TEMP 36.6; O2SAT 97
[2017-02-16] MEDS ORDERED: COUGH DROP (SUGAR FREE) LOZ 24 LOZ/1 BOX ONE (04:01)
[2017-02-16 07:01] LABS: CREATININE 0.6 mg/dl (0.60-1.20)
[2017-02-16 08:06] VITALS: BP 81/45; PULSE 75; TEMP 36.4; O2SAT 100
[2017-02-16] MEDS ORDERED: VANCOMYCIN TROUGH SCH ×2 (08:30→10:30)
[2017-02-16] MEDS: RANITIDINE HCL 150 MG TAB PO SCH (08:41)
[2017-02-16] MEDS: SERTRALINE HCL 100 MG TAB PO SCH (08:41)
[2017-02-16] MEDS: BUPRENORPHINE/NALOXONE 8/2 MG TAB SL SCH (09:00)
--- NOTE | 2017-02-16 10:14 | Orthopedic Progress Note ---
Orthopedic Progress Note Date of Service Feb 16, 2017. Subjective Post OP Day: 1 Reports: feeling well Additional Notes: Pt is much better this AM. Seems to be in a better frame of mind. Pain seems controlled. Patient with questions about hand swelling but otherwise doing ok. I call called the patients Pain Management clinic this AM ( ) and left a message for Hemalatha Ruby who is managing the pt's Suboxone. Waiting for reply. Pt agreeable for me to discuss her case with her. Discussed maintaining hand elevation to help relieve swelling. Objective capillary refill less than 2 sec., dressing C/D/I, A&O x3, CMS intact Fingers swollen but not tense. Date Time Temp Pulse Resp B/P Pulse Ox O2 Delivery O2 Flow Rate FiO2 02/16/17 08:06 36.4 75 18 81/45 100 Room Air 02/16/17 03:45 36.6 60 18 100/66 97 Room Air 02/16/17 00:20 Room Air 02/15/17 23:20 36.7 62 17 113/70 96 Room Air 02/15/17 20:10 37.2 88 18 118/79 97 Room Air 02/15/17 17:42 37.1 80 16 125/78 100 Room Air 02/15/17 16:30 37.2 74 20 132/78 96 Room Air 02/15/17 16:12 37.1 86 18 104/67 93 Room Air 02/15/17 16:00 98 Room Air 02/15/17 14:40 98 Room Air 02/15/17 14:35 37.3 81 18 111/70 98 Room Air 02/15/17 14:25 78 18 135/69 99 Mask 3 02/15/17 14:15 36.8 75 18 135/67 99 Mask 3 02/15/17 14:05 75 16 131/71 99 Mask 10 02/15/17 13:55 84 16 126/91 99 Mask 10 02/15/17 13:46 37.1 88 16 136/57 100 Mask 10 Assessment & Plan Assessment: POD 1 s/p I&D Left Forearm Abscess Cx showing gram + cocci currently h/o chronic low back pain Plan: Follow Cx's ID team on board Dressing change with packing removal Sunday. Inhouse Planning Pain Management: Toradol, Dilaudid, Oxy IR, other (Suboxone) DVT Prophylaxis: SCDs Discharge Planning Discharge Planning: home
--- NOTE | 2017-02-16 11:29 | Infectious Disease Progress Nt ---
Progress Note Date of Service Feb 16, 2017. Subjective Pt evaluation today including: conversation w/ patient, physical exam, chart review, lab review, review of studies, conversation w/ benefits sales consultant (Chinmay verdin), review of inpatient medication list Creatinine has been stable at 0.60 today. Patient did have I & D and operative record was reviewed. Gross purulence was encountered and it was noted that there was tracking proximally and toward the ulna. The patient is feeling well this morning but states that she was having pain control problems last night and almost left the hospital. Her pain is more under control today. Surgical culture pending- gram stain showing many gram positive cocci. All Other Systems: Reviewed and Negative Medications Current Inpatient Medications Medications (Trade) Dose Ordered Sig/Noam Route Start Time Stop Time Status Last Admin Dose Admin Ondansetron HCl (Zofran Inj) 4 mg Q6H PRN IV 02/14/17 15:00 03/16/17 14:59 Vancomycin HCl (Consult) 1 ea UD PRN N/A 02/14/17 15:15 03/16/17 15:14 Diphenhydramine HCl (Benadryl Cap) 25 mg Q8H PRN PO 02/14/17 15:15 03/16/17 15:14 Sertraline HCl (Zoloft Tab) 200 mg DAILY PO 02/15/17 09:00 03/17/17 08:59 02/16/17 08:41 200 MG Trazodone HCl (Desyrel Tab) 100 mg HS PO 02/14/17 21:00 03/16/17 20:59 02/15/17 20:08 100 MG Ranitidine HCl 75 mg 75 mg DAILY PO 02/15/17 09:00 03/17/17 08:59 02/16/17 08:41 75 MG Vancomycin HCl/ Sodium Chloride (Vancomycin Inj/ Nss 500ml) 535 ml @ 200 mls/hr Q10H IV 02/15/17 03:00 02/23/17 23:59 02/16/17 00:30 200 MLS/HR Buprenorphine/ Naloxone (Suboxone Tab) 2 ea QAM SL 02/14/17 18:00 03/16/17 17:59 Future hold Ketorolac Tromethamine (Toradol Inj) 30 mg Q6H PRN IV 02/14/17 16:45 02/19/17 16:44 02/15/17 16:23 30 MG Nicotine 1 patch 1 patch HS EXT 02/14/17 21:00 03/16/17 20:59 02/15/17 20:05 1 PATCH Potassium Chloride/Dextrose/ Sod Cl (D5W And 1/2nss + 20meq KCl) 1,000 ml @ 100 mls/hr Q10H IV 02/15/17 14:15 03/17/17 13:40 02/16/17 10:46 100 MLS/HR Diphenhydramine HCl (Benadryl Inj) 25 mg Q8H PRN IV 02/15/17 13:45 03/17/17 13:44 Oxycodone HCl (Roxicodone Immediate Rel Tab) `1-2 tabs for pain 1 tab ... Q4HWA PRN PO 02/15/17 18:45 03/01/17 18:44 02/16/17 08:40 10 MG Hydromorphone HCl (Dilaudid Inj) 0.25 mg Q3HWA PRN IV 02/15/17 18:45 03/01/17 18:44 02/15/17 20:13 0.25 MG Objective Vital Signs Date Time Temp Pulse Resp B/P Pulse Ox O2 Delivery O2 Flow Rate FiO2 02/16/17 08:06 36.4 75 18 81/45 100 Room Air 02/16/17 03:45 36.6 60 18 100/66 97 Room Air 02/16/17 00:20 Room Air 02/15/17 23:20 36.7 62 17 113/70 96 Room Air 02/15/17 20:10 37.2 88 18 118/79 97 Room Air 02/15/17 17:42 37.1 80 16 125/78 100 Room Air 02/15/17 16:30 37.2 74 20 132/78 96 Room Air 02/15/17 16:12 37.1 86 18 104/67 93 Room Air 02/15/17 16:00 98 Room Air 02/15/17 14:40 98 Room Air 02/15/17 14:35 37.3 81 18 111/70 98 Room Air 02/15/17 14:25 78 18 135/69 99 Mask 3 02/15/17 14:15 36.8 75 18 135/67 99 Mask 3 02/15/17 14:05 75 16 131/71 99 Mask 10 02/15/17 13:55 84 16 126/91 99 Mask 10 02/15/17 13:46 37.1 88 16 136/57 100 Mask 10 Physical Exam General Appearance: no apparent distress, + obese Eyes: normal inspection, sclerae normal ENT: hearing grossly normal Neck: supple, trachea midline Respiratory/Chest: no respiratory distress, no accessory muscle use Cardiovascular: + pertinent finding (regular rate) Extremities: + pertinent finding (left arm with dressing in place. C/D/I. Swelling is improved. ) Neurologic/Psychiatric: alert, normal mood/affect Skin: warm/dry, no rash, + pertinent finding (improvement of erythema of the proximal left upper extremity) Laboratory Results RUN DATE: 02/15/17 [facility] LAB PAGE 1 RUN TIME: 1354 Specimen Inquiry PATIENT: BRIGITTE RICKETTS LOC: W U # : [id number] AGE/SX: 31/F ROOM: [facility] REG : 02/14/[address]: Charles Corrales D.O. : 1985 BED: 1 DIS : STATUS: ADM IN TLOC: SPEC #: [id number] AMY: 02/15/17 STATUS: RES REQ #: [id number] RECD: 02/15/[address] [facility] [address]: Charles Corrales D.OXavier SOURCE: ABSCESS ENTR: 02/15/17 [facility] DR: Chinmay Jordan P.AXavier [facility]: Katrin HENDERSON Kary A. C.R.N.P. Markel, Jessica ., Jennifer. Daily D.OXavier ORDERED: AER/RAIMUNDO CULTSMR Procedure Result Verified Site GRAM STAIN Final 02/15/17 RESULT RARE EPITHELIAL CELLS MANY POLYS MANY GRAM POSITIVE COCCI OR AER/RAIMUNDO CULT Results Pending Last 24 Hours Test 02/15/17 12:29 02/16/17 06:19 02/16/17 10:30 Bedside Urine Test NEG Creatinine 0.60 mg/dl Est Creatinine Clear Calc Drug Dose 177.3 ml/min Estimated GFR () 142.8 Estimated GFR (Non- 123.2 Assessment and Plan Patient with left forearm abscess and surrounding cellulitis now s/p I & D of the left forearm. Surgical culture is pending. She continues on IV Vancomycin. Feel that she should continue Vanco pending culture results. She may need further IV abx pending improvement of her surgical site, but also may consider transition to PO therapy if she has major improvement. She also may be a good candidate for IV Dalbavancin, which would be one dose of IV therapy to cover her for 2 weeks. We will continue to follow this patient and her progress. Case reviewed and agree with above assessment.
[2017-02-16 13:48] VITALS: BP 107/61; PULSE 75; TEMP 37.2; O2SAT 100
--- NOTE | 2017-02-16 14:08 | Pharmacy Progress Note ---
Pharmacy Antibiotic Prog Note Date of Service Feb 16, 2017. Subjective The patient is currently receiving IV Vancomycin 1750mg IV q10h. The patient is currently on day #3 of IV therapy. Objective Height (Feet): 5 Height (Inches): 6.00 Weight (Kilograms): 114.000 Levels: Item Value Date Time Vancomycin Level Trough 21.0 mcg/ml 02/16/17 1030 Lab Results (24hrs): Laboratory Tests Test 02/16/17 06:19 Creatinine 0.60 mg/dl Micro Results: Item Value Date Time Gram Stain - Final Resulted 02/15/17 1320 Abscess Arm , Left Lower Recent Pertinent Medications Item Value Date Time Vancomycin HCl 555 ml @ 200 mls/hr 02/14/17 1630 2750 mg/Sodium TODAY@1630/IV 02/14/17 1705 Chloride Vancomycin HCl 535 ml @ 200 mls/hr 02/15/17 0300 1750 mg/Sodium Q10H/IV 02/16/17 1232 Chloride Assessment & Plan Vancomycin * 31 yo F with forearm abscess/cellulitis s/p I&D * Goal trough level: 15-20mcg/mL pending surgical cx results * Trough this AM: 21mcg/mL (slightly supratherapeutic, could be from infusion delay yesterday d/t pt attempt to leave AMA) * Continue current dose & repeat trough check tomorrow morning after few more doses * Trough level ordered for: 02/17/17 0700 dose Pharmacy will continue to follow and will adjust dose/frequency as necessary. Thank you
[2017-02-16 15:05] VITALS: BP 128/71; PULSE 81; TEMP 37.2; O2SAT 100
[2017-02-16 15:30] VITALS: O2SAT 100
--- NOTE | 2017-02-16 16:18 | Pain Management Consultation ---
Pain Management Consultation Date of Consultation Feb 16, 2017. Reason for Consultation Attempts were made to see this patient today. She was not in the room as she went outside. Staff tried to find her but they would not able to locate her. Her history was reviewed and recommendations based on review of the EMR and discussion with Chinmay Jordan PA-C are offered. Social / Work History Marital Status: Occupation: employed Allergies Coded Allergies: Penicillins (Unverified Allergy, Mild, 02/09/17) Aspirin (Unverified Allergy, Unknown, "bp went up", 02/09/17) Blueberry (Unverified Allergy, Unknown, HIVES, 02/09/17) Citric Acid (Unverified Allergy, Unknown, "bp went up", 02/09/17) Sodium Bicarbonate (Unverified Allergy, Unknown, "bp went up", 02/09/17) Medications Current Inpatient Medications Medications (Trade) Dose Ordered Sig/Noam Route Start Time Stop Time Status Last Admin Dose Admin Ondansetron HCl (Zofran Inj) 4 mg Q6H PRN IV 02/14/17 15:00 03/16/17 14:59 Vancomycin HCl (Consult) 1 ea UD PRN N/A 02/14/17 15:15 03/16/17 15:14 Diphenhydramine HCl (Benadryl Cap) 25 mg Q8H PRN PO 02/14/17 15:15 03/16/17 15:14 Sertraline HCl (Zoloft Tab) 200 mg DAILY PO 02/15/17 09:00 03/17/17 08:59 02/16/17 08:41 200 MG Trazodone HCl (Desyrel Tab) 100 mg HS PO 02/14/17 21:00 03/16/17 20:59 02/15/17 20:08 100 MG Ranitidine HCl 75 mg 75 mg DAILY PO 02/15/17 09:00 03/17/17 08:59 02/16/17 08:41 75 MG Vancomycin HCl/ Sodium Chloride (Vancomycin Inj/ Nss 500ml) 535 ml @ 200 mls/hr Q10H IV 02/15/17 03:00 02/23/17 23:59 02/16/17 12:32 200 MLS/HR Buprenorphine/ Naloxone (Suboxone Tab) 2 ea QAM SL 02/14/17 18:00 03/16/17 17:59 Future hold Ketorolac Tromethamine (Toradol Inj) 30 mg Q6H PRN IV 02/14/17 16:45 02/19/17 16:44 02/15/17 16:23 30 MG Nicotine 1 patch 1 patch HS EXT 02/14/17 21:00 03/16/17 20:59 02/15/17 20:05 1 PATCH Potassium Chloride/Dextrose/ Sod Cl (D5W And 1/2nss + 20meq KCl) 1,000 ml @ 100 mls/hr Q10H IV 02/15/17 14:15 03/17/17 13:40 02/16/17 10:46 100 MLS/HR Diphenhydramine HCl (Benadryl Inj) 25 mg Q8H PRN IV 02/15/17 13:45 03/17/17 13:44 Oxycodone HCl (Roxicodone Immediate Rel Tab) `1-2 tabs for pain 1 tab ... Q4HWA PRN PO 02/15/17 18:45 03/01/17 18:44 02/16/17 14:03 10 MG Hydromorphone HCl (Dilaudid Inj) 0.25 mg Q3HWA PRN IV 02/15/17 18:45 03/01/17 18:44 02/15/17 20:13 0.25 MG Physical Exam Height & Weight: Height 5 feet, 6.00 inches. Weight 114.000 (Kilograms) 251 (Pounds) Last Vital Signs Documentation Date Time Temp Pulse Resp B/P Pulse Ox O2 Delivery O2 Flow Rate FiO2 02/16/17 15:05 37.2 81 18 128/71 100 Room Air 02/15/17 14:25 3 Laboratory / Imaging Results Laboratory Results (Last CBC): 02/14/17 10:20 Red Blood Count 4.96, Mean Corpuscular Volume 82.1, Mean Corpuscular Hemoglobin 27.8, Mean Corpuscular Hemoglobin Concent 33.9, Mean Platelet Volume 8.6, Neutrophils (%) (Auto) 75.8, Lymphocytes (%) (Auto) 14.4, Monocytes (%) (Auto) 8.6, Eosinophils (%) (Auto) 0.7, Basophils (%) (Auto) 0.1, Neutrophils # (Auto) 7.56 H, Lymphocytes # (Auto) 1.44, Monocytes # (Auto) 0.86 H, Eosinophils # ( Auto) 0.07, Basophils # (Auto) 0.01 Assessment 1. [] 2. [] 3. [] 4. [] 5. [] Recommendations 1. Recommend decreasing the dosage and frequency of the oxycodone and starting Tapentadol 50 mg every 4 hours provided patient does not have a history of seizures or is not on SNRIs. If she demonstrates no side effects, then dose can be increased gradually up to 100 mg every 4 hours not exceed 600 mg daily total dose. 2. Upon discharge, recommend providing patient a prescription for either oxycodone or Tapentadol, which ever medication is more efficacious until she has an appointment with her outpatient Suboxone clinic or for a number of days that analgesics are typically prescribed for soft tissue procedure. Would then recommend discontinuation of the analgesic for 24 hours an resume Suboxone at an appropriate dose necessary for analgesia and substance abuse maintenance. Rip van Wafels Voice Recognition This chart was completed in part utilizing [employer] Voice Recognition Software. Random word insertions, pronoun errors, and incomplete sentences are an occasional consequence of this system due to software limitations and ambient noise. Any questions or concerns about the content, text or information contained within the body of this dictation should be directly addressed to the provider for clarification.
[2017-02-16] MEDS: NICOTINE 21 MG/24 HR TDSY EXT SCH (21:59)
[2017-02-16] MEDS: TRAZODONE HCL 100 MG TAB PO SCH (22:01)
[2017-02-16 23:41] VITALS: BP 108/67; PULSE 76; TEMP 37.2; O2SAT 96
[2017-02-17] MEDS: OXYCODONE HCL IR 5 MG TAB (IMMEDIATE RELEASE) PO PRN ×6 (00:25→21:43)
[2017-02-17] MEDS: D5W AND 1/2NSS + 20MEQ KCL 1,000 ML IV SCH ×2 (06:15→17:15)
[2017-02-17] MEDS ORDERED: VANCOMYCIN TROUGH SCH (06:30)
[2017-02-17] MEDS: VANCOMYCIN INJ 1,750 MG in SODIUM CHLORIDE 0.9% 500ML 500 ML IV SCH (07:13)
[2017-02-17 07:15] LABS: CREATININE 0.7 mg/dl (0.60-1.20)
[2017-02-17 07:33] VITALS: BP 126/85; PULSE 69; TEMP 37; O2SAT 99
[2017-02-17] MEDS: BUPRENORPHINE/NALOXONE 8/2 MG TAB SL SCH (07:42)
[2017-02-17] MEDS: SERTRALINE HCL 100 MG TAB PO SCH (07:43)
[2017-02-17] MEDS: RANITIDINE HCL 150 MG TAB PO SCH (07:43)
--- NOTE | 2017-02-17 08:48 | Pharmacy Progress Note ---
Pharmacy Antibiotic Prog Note Date of Service Feb 17, 2017. Subjective The patient is currently receiving the following antimicrobial agents per Pharmacy consult: Vancomycin 1750 mg IV every 10 hours Objective Height (Feet): 5 Height (Inches): 6.00 Weight (Kilograms): 114.000 Levels: Item Value Date Time Vancomycin Level Trough 22.3 mcg/ml 02/17/17 0635 Lab Results (24hrs): Laboratory Tests Test 02/17/17 06:35 Creatinine 0.70 mg/dl Micro Results: RUN DATE: 02/16/17 [facility] LAB PAGE 1 RUN TIME: 1152 Specimen Inquiry PATIENT: BRIGITTE RICKETTS LOC: ROBIN # : [id number] AGE/SX: 31/F ROOM: [facility] REG : 02/14/[address]: Charles Corrales D.O. : 1985 BED: 1 DIS : STATUS: ADM IN TLOC: SPEC #: [id number] AMY: 02/15/17 STATUS: RES REQ #: [id number] RECD: 02/15/17-[address]: Charles Corrales D.O. SOURCE: ABSCESS ENTR: 02/15/[address]: Chinmay Jordan P.AXavier SPDESC: ARM,L LOW JaquelinCarey Jessica ., Jennifer. Daily, ShawandaO. ORDERED: AER/RAIMUNDO CULTSMR Procedure Result Verified Site GRAM STAIN Final 02/15/17-3121 RESULT RARE EPITHELIAL CELLS MANY POLYS MANY GRAM POSITIVE COCCI OR AER/RAIMUNDO CULT Preliminary 02/16/17-1152 Organism 1 STREPTOCOCCUS SPECIES QUANITY MODERATE SENS SENSITIVITIES DEPENDENT ON FURTHER IDENTIFICATION Assessment & Plan Assessment 31 year old female receiving Vancomycin IV for treatment of left forearm abscess with surrounding cellulitis, s/p I&D. On day # 4 of antimicrobial therapy Surgical culture reported streptococcus species - sensitivity dependent on further identification Plan Vancomycin IV * Trough level of 22.3 mcg/mL is slightly supratherapeutic. * Change to 1650 mg (14 mg/kg) IV every 12 hours * Goal trough level for abscess/cellulitis : 15 to 20 mcg/mL * Repeat trough level will be ordered if patient continues on IV therapy Pharmacy will continue to follow and will adjust dose/frequency as necessary. Thank you
--- NOTE | 2017-02-17 11:06 | Orthopedic Progress Note ---
Orthopedic Progress Note Date of Service Feb 17, 2017. Subjective Post OP Day: 3 Reports: feeling well, pain controlled w PO medications, Denies: SOB, calf pain , chest pain, light headedness, nausea / vomiting Objective calves soft nontender, N/V intact, capillary refill less than 2 sec., dressing C /D/I (dressing changed and packing pulled) Date Time Temp Pulse Resp B/P Pulse Ox O2 Delivery O2 Flow Rate FiO2 02/17/17 07:33 37.0 69 18 126/85 99 Room Air 02/17/17 00:00 Room Air 02/16/17 23:41 37.2 76 16 108/67 96 Room Air 02/16/17 15:30 100 Room Air 02/16/17 15:05 37.2 81 18 128/71 100 Room Air 02/16/17 13:48 37.2 75 18 107/61 100 Room Air Assessment & Plan Assessment: POD 2 s/p I&D Left Forearm Abscess Cx showing alpha strep not enterococcus h/o chronic low back pain Plan: Follow Cx's ID team on board-spoke with Michelle Segovia PA-C. Recommend IV ceftriaxone 2 gm daily for 2 weeks. will start dose today and tomorrow and plan for discharge after dose tomorrow. Dressing changed and packing pulled today Inhouse Planning Pain Management: Toradol, Dilaudid, Oxy IR, other (Suboxone) DVT Prophylaxis: SCDs Discharge Planning Discharge Planning: home
[2017-02-17] MEDS: CEFTRIAXONE SOD INJ 2,000 MG in DEXTROSE 5% 50ML 50 ML IV SCH (13:13)
[2017-02-17 15:07] VITALS: BP 140/85; PULSE 79; TEMP 37.5; O2SAT 98
[2017-02-17] MEDS ORDERED: VANCOMYCIN INJ 1,650 MG in SODIUM CHLORIDE 0.9% 500ML 500 ML IV SCH (20:00)
[2017-02-17] MEDS: TRAZODONE HCL 100 MG TAB PO SCH (21:42)
[2017-02-17] MEDS: NICOTINE 21 MG/24 HR TDSY EXT SCH (21:42)
[2017-02-17 23:37] VITALS: BP 108/59; PULSE 79; TEMP 37; O2SAT 98
[2017-02-18] MEDS: D5W AND 1/2NSS + 20MEQ KCL 1,000 ML IV SCH (02:04)
[2017-02-18] MEDS: OXYCODONE HCL IR 5 MG TAB (IMMEDIATE RELEASE) PO PRN ×3 (04:00→12:03)
[2017-02-18 07:49] VITALS: BP 159/89; PULSE 69; TEMP 36.9; O2SAT 98
[2017-02-18] MEDS: RANITIDINE HCL 150 MG TAB PO SCH (08:48)
[2017-02-18] MEDS: BUPRENORPHINE/NALOXONE 8/2 MG TAB SL SCH (08:49)
[2017-02-18] MEDS: SERTRALINE HCL 100 MG TAB PO SCH (08:49)
[2017-02-18] MEDS ORDERED: RXC5 PO (09:30)
--- NOTE | 2017-02-18 09:36 | Discharge Instructions ---
Discharge Instructions Date of Service Feb 18, 2017. Admission Reason for Admission: Abscess Of Left Forearm Discharge Discharge Diagnosis / Problem: I & D left forearm abscess Discharge Goals Goal(s): Decrease discomfort, Improve function, Increase independence Activity Recommendations Activity Limitations: per Instructions/Follow-up section ACTIVITY RECOMMENDATIONS: * Avoid lifting anything heavier than a medium water glass until your first post operative visit. SPECIAL CARE INSTRUCTIONS: * Your bandage should be left in place until seen in the office this week. * Some drainage onto the dressing may occur. This is normal. * If the bandage feels excessively tight, you may loosen the elastic bandage. Then call the physician's office for further instructions. * If possible, keep your hand elevated above the level of your heart for the first 2 post operative days. You may use a sling if necessary. * You should move your fingers regularly (50-100 motions per hour) unless otherwise instructed. SPECIAL PRECAUTIONS: * If you notice increased drainage, fever over 101 degrees F. or severe, unremitting pain, call your physician/office at . * You may have been prescribed pain medication. If you experience nausea and/or skin rash, discontinue this medication and contact our office for an alternative medication. FOLLOW UP VISIT: If appointment is not already scheduled: Please call [facility] to make a follow-up appointment after your surgery at . . Instructions / Follow-Up Instructions / Follow-Up Follow up in [address] Reyez or ADIN Leonard call [phone] for an appt Follow up with Suboxone clinic upon discharge Current Hospital Diet Patient's current hospital diet: Regular Diet Discharge Diet Recommended Diet: Regular Diet Procedures Procedures Performed: Incision and debridement left forearm abscess Pending Studies Studies pending at discharge: no Medical Emergencies . Who to Call and When: Medical Emergencies: If at any time you feel your situation is an emergency, please call [phone] immediately. . Non-Emergent Contact Non-Emergency issues call your: Primary Care Provider . "Provider Documentation" section prepared by Rebekah Baires. VTE Core Measure Inpt VTE Proph given/why not?: [facility] [place] Drug Monitoring Program Search Results: patient reviewed within database, no issues identified
--- NOTE | 2017-02-18 09:38 | Discharge Instructions ---
Discharge Instructions Date of Service Feb 18, 2017. Admission Reason for Admission: Abscess Of Left Forearm Discharge Discharge Diagnosis / Problem: I & D left forearm abscess Discharge Goals Goal(s): Decrease discomfort, Improve function, Increase independence Activity Recommendations Activity Limitations: per Instructions/Follow-up section ACTIVITY RECOMMENDATIONS: * Avoid lifting anything heavier than a medium water glass until your first post operative visit. SPECIAL CARE INSTRUCTIONS: * Your bandage should be left in place until seen in the office this week. * Some drainage onto the dressing may occur. This is normal. * If the bandage feels excessively tight, you may loosen the elastic bandage. Then call the physician's office for further instructions. * If possible, keep your hand elevated above the level of your heart for the first 2 post operative days. You may use a sling if necessary. * You should move your fingers regularly (50-100 motions per hour) unless otherwise instructed. SPECIAL PRECAUTIONS: * If you notice increased drainage, fever over 101 degrees F. or severe, unremitting pain, call your physician/office at . * You may have been prescribed pain medication. If you experience nausea and/or skin rash, discontinue this medication and contact our office for an alternative medication. FOLLOW UP VISIT: If appointment is not already scheduled: Please call [facility] to make a follow-up appointment after your surgery at . . Instructions / Follow-Up Instructions / Follow-Up Follow up this week with dr. marrero. call [phone] for an appt Follow up with Suboxone provider for further treatment Current Hospital Diet Patient's current hospital diet: Regular Diet Discharge Diet Recommended Diet: Regular Diet Procedures Procedures Performed: Incision and debridement left forearm abscess Pending Studies Studies pending at discharge: no Medical Emergencies . Who to Call and When: Medical Emergencies: If at any time you feel your situation is an emergency, please call [phone] immediately. . Non-Emergent Contact Non-Emergency issues call your: Primary Care Provider . "Provider Documentation" section prepared by Rebekah Baires. VTE Core Measure Inpt VTE Proph given/why not?: [facility] [place] Drug Monitoring Program Search Results: patient reviewed within database, no issues identified
--- NOTE | 2017-02-18 09:44 | Orthopedic Progress Note ---
Orthopedic Progress Note Date of Service Feb 18, 2017. Subjective Post OP Day: 3 Reports: feeling well, pain controlled w PO medications, Denies: SOB, calf pain , chest pain, light headedness, nausea / vomiting Objective calves soft nontender, N/V intact, capillary refill less than 2 sec., incision C /D/I, A&O x3, toes mobile Date Time Temp Pulse Resp B/P Pulse Ox O2 Delivery O2 Flow Rate FiO2 02/18/17 07:49 36.9 69 18 159/89 98 Room Air 02/18/17 07:30 Room Air 02/17/17 23:37 37.0 79 16 108/59 98 Room Air 02/17/17 20:00 Room Air 02/17/17 16:08 Room Air 02/17/17 15:07 37.5 79 18 140/85 98 Room Air Assessment & Plan Assessment: POD 3 s/p I&D Left Forearm Abscess Cx showing alpha strep not enterococcus Started on IV Rocephin, will continue for 2 weeks with HH and follow up with ID. Given Oxycodone for pain control, when finished will resume suboxone discussed with patient and agrees h/o chronic low back pain Plan: Follow Cx's ID team on board-spoke with Michelle Segovia PA-C. Recommend IV ceftriaxone 2 gm daily for 2 weeks. will start dose today and tomorrow and plan for discharge after dose tomorrow. Dressing changed and packing pulled today Inhouse Planning Pain Management: Oxy IR, other (Suboxone) DVT Prophylaxis: SCDs Discharge Planning Discharge Planning: home
[2017-02-18 10:02] VITALS: BP 159/89; PULSE 69; TEMP 36.9; O2SAT 98
--- NOTE | 2017-02-18 11:20 | DIAGNOSTIC IMAGING REPORT ---
SINGLE VIEW CHEST CLINICAL HISTORY: PICC placement. FINDINGS: An AP, portable, upright chest radiograph is compared to study dated 04/07/2014. The examination is degraded by portable technique, large body habitus, and patient rotation. A right PICC line has been placed. The tip of the catheter projects over the SVC. The cardiomediastinal silhouette is unremarkable. There is mild bibasilar atelectasis. The lungs and pleural spaces are otherwise clear. No pneumothorax is seen. The bony thorax is grossly intact. IMPRESSION: 1. A right PICC line has been placed. The tip of the catheter projects over the SVC. 2. No airspace consolidation or pleural effusion is identified. Electronically signed by: Chemo Brar M.D. 02/18/2017 11:18 AM Dictated Date/Time: 02/18/2017 11:17 AM
[2017-02-18] MEDS: CEFTRIAXONE SOD INJ 2,000 MG in DEXTROSE 5% 50ML 50 ML IV SCH (11:39)
--- NOTE | 2017-02-19 17:20 | DISCHARGE SUMMARY ---
DISCHARGE DIAGNOSIS: Abscess, left forearm. SECONDARY DIAGNOSES: Gastroesophageal reflux disease, depression, anxiety, chronic low back pain, history of premature atrial contractions as a child, and history of ovarian cysts. CONSULTS: Kristie Segovia PA-C/David Sanchez M.D. COMPLICATIONS: None. PROCEDURES: I\T\D, left forearm abscess by Dr. Reyez on 02/15/2017. BRIEF HISTORY: As dictated in history and physical. HOSPITAL SUMMARY: The patient was admitted on the above noted date with the above-noted abscess with also a cellulitis. She was started on IV vancomycin and infectious disease consult was placed which they saw the patient and continued to follow during her stay. By February 15, she was taken to the operating room by Dr. Reyez and the above noted irrigation and debridement was performed which the patient tolerated well. Of note, the patient later that evening was having difficulty with pain control and with history of her Suboxone use through a pain management clinic, she was stating that she was not having good pain control and she was trying to sign out against medical advice. I had shown up on the floor at that point in time and talked the patient out of leaving the hospital and she went back to her room and after a lengthy discussion, she agreed to stay and receive her IV antibiotics. Call was placed to Dr. Reyez and medications for pain control were ordered and a pain management consult was placed. I discussed the patient's case with Dr. Gunter initially and then Dr. Fang who took over her case. By the following morning on her first postoperative day, she was much better that morning. She seemed in better frame of mind, pain was controlled, she had questions about her hand swelling but was otherwise doing okay. I had a called the patient's pain management clinic that morning and left a message with Lucia Ruby, to discuss the patient's current treatment with the patient's permission, I received no reply from Ms. Ruby. Her dressings were intact, capillary refill was less than 2 seconds. C\T\S was intact. Fingers were swollen but not tense. Vital signs were stable and she was afebrile. Plans are to continue elevation of the left upper extremity. Cultures were showing gram positive cocci at that time and she was continued on her IV antibiotics and plans were for dressing changes and packing removal the following day. Dr. Fang stopped in to see the patient on the same day; however, she was not in her room and gave his recommendations that were noted in the chart for her eventual decreasing of her pain medications and follow up with her pain management clinic. By February 17, she was feeling well, pain was controlled, calves were soft and nontender and her dressing was changed and packing was removed. Vital signs were stable, she was afebrile and she was continued on her IV antibiotics. Kristie Segovia was contacted by our group and ceftriaxone was ordered 2 grams daily for 2 weeks. Cultures had come back alpha strep, not enterococcus and she was otherwise remaining stable. The rest of her stay was essentially uneventful and home health services was contacted through case management and set up for IV antibiotics. A PICC line was placed and she was otherwise remaining stable and by 02/18/2017 it was felt that she could be discharged to home. Plans were for her to go home with a prescription for short term oxycodone and she was to follow up with her pain management clinic to resume Suboxone treatment thereafter. DISCHARGE INSTRUCTIONS: The patient was discharged to home on 02/18/2017. DIET: Regular. ACTIVITY: Avoid lifting anything heavier than a medium water glass until the first postoperative visit. FOLLOWUP: Follow special care instructions with bandage and follow up with Dr. Reyez in [facility]. The patient to call for appointment in 1 week. DISCHARGE MEDICATIONS: Ceftriaxone 2 grams IV daily for 2 weeks, oxycodone 5-10 mg p.o. q. 4 hours p.r.n. Resume taking Zantac 75 mg p.o. daily, sertraline 200 mg p.o. daily, trazodone 100 mg p.o. at bedtime. Stop taking Suboxone until finished with oxycodone and then resume per your pain management clinic. Stop taking clindamycin, ibuprofen, phentermine, and Bactrim-DS.
== END 2017-02-18 12:49 | disposition home or self-care (01) | DRG 603 ==
LOC: ENRESERVDT → ENRESERVTM → C.EDB 09:29 → EEVIPCON 14:57 → C.MSW 14:57
PROVIDERS: ADMIT Orthopaedic Surgery Sports Medicine; ATTEND Orthopaedic Surgery Sports Medicine
PROC: 0J9F3ZZ Drainage of Left Upper Arm Subcutaneous Tissue and Fascia, Percutaneous Approach (ICD-10-PCS; principal; 2017-02-15 12:00)
DX: L02.414 Cutaneous abscess of left upper limb (principal); F32.9 Major depressive disorder, single episode, unspecified; F41.9 Anxiety disorder, unspecified; M54.5 Low back pain; F17.210 Nicotine dependence, cigarettes, uncomplicated; K21.9 Gastro-esophageal reflux disease without esophagitis